=== PATIENT | female | born 1935 | race Caucasian/White ===

== ENCOUNTER → 2016-06-16 | Outpatient (CLI) | payer MEDICARE ==
[~2016-06-16] MED LIST: ABAT125S; ALEN70TA5 PO; ESCI10TA PO; FOLI-17 PO; TRIA1CAP3 PO
== END | disposition home or self-care (01) ==
LOC: CARD 12:49
PROVIDERS: ATTEND Specialist
DX: F09 Unspecified mental disorder due to known physiological condition (principal); R41.0 Disorientation, unspecified
CPT/HCPCS: 95819

== ENCOUNTER 2018-04-02 20:23 | Inpatient (IN) | payer MEDICARE ==
[~2018-04-02] VITALS: Ht 152.4 cm; Wt 53.3 kg
--- NOTE | 2018-04-02 20:35 | NUR ---
PRECEPTOR NOTE, LATE ENTRY FOR 2034: pt william, ems called by d/t sudden alteration in mental status. per ems, at 1915 this pm, pt's noticed pt became less responsive and began to drool. left sided mouth droop noted on arrival. pt is minimally verbal and a&o x0 at baseline d/t hx dementia and hydrocephalus. 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 all monitors in place. EDMD Slava at bedside for assessment. Code neuro called.
--- NOTE | 2018-04-02 20:36 | NUR ---
PT TO CT
--- NOTE | 2018-04-02 20:37 | NUR ---
CODE NEURO CALLED 2034
[2018-04-02] MEDS ORDERED: OMNIPAQUE 350 MG/ML, 100ML BOTTLE ONE (20:40)
--- NOTE | 2018-04-02 20:49 | NUR ---
CODE NEURO CALLED @ 234 NEURO PAGED @ 2035 LEVON CALLED BACK @ 2037
--- NOTE | 2018-04-02 21:00 | NUR ---
PT BACK FROM CT
[2018-04-02 21:14] LABS: BASOPHILS # (AUTO) 0.03 x10^3/uL (0-0.1); BASOPHILS % (AUTO) 0 % (0-1); EOSINOPHILS # (AUTO) 0.16 x10^3/uL (0-0.4); EOSINOPHILS % (AUTO) 1 % (1-7); LYMPHOCYTES % (AUTO) 7 % (22-44); MD NO; MEAN CORPUSCULAR HEMOGLOBIN 26.6 pg (27.0-34.8); MEAN CORPUSCULAR HGB CONC 32.2 g/dL (32.4-35.8); MEAN CORPUSCULAR VOLUME 82.6 fL (80-100); MEAN PLATELET VOLUME 7.3 fL (7.4-10.4); MONOCYTES # (AUTO) 0.67 x10^3/uL (0.2-0.8); MONOCYTES % (AUTO) 5 % (2-9); NEUTROPHILS # (AUTO) 10.65 x10^3/uL (1.8-6.8); NEUTROPHILS % (AUTO) 86 % (42-75); PLATELET COUNT 349 x10^3/uL (130-400); RED BLOOD COUNT 3.79 x10^6/uL (3.82-5.3); RED CELL DISTRIBUTION WIDTH 17.5 % (9.6-15.2)
--- NOTE | 2018-04-02 21:25 | NUR ---
PT IS A&O TO PERSON ONLY, ABLE TO ANSWER SOME QUESTIONS AND FOLLOW SOME COMMANDS. TELE NEURO CONSALT COMPLETE WITH RN ASSIST IN PT ASSESSMENT. AWAITIG NEUROLOGIST RECOMMENDATIONS AT THIS TIME. CALL LIGHT IN REACH.
[2018-04-02 21:26] LABS: INTERNATIONAL NORMALIZED RATIO 1.02 (0.93-1.1); PROTHROMBIN TIME 10.8 Seconds (9.6-11.5)
--- NOTE | 2018-04-02 22:15 | NUR ---
URINE STRAIGHT CATH OBTAINED, STERILE TECHNIQUE MAINTAINED. URINE WALKED TO LAB. AWAITING ADMIT BED ASSIGNMENT AND TRANSPORT.
[2018-04-02 22:27] LABS: CULTURE INDICATED? YES; MICROSCOPIC INDICATED
[2018-04-02] MEDS ORDERED: cefdinir (22:33)
[2018-04-02] MEDS ORDERED: DONEPEZIL HCL (22:33)
[2018-04-02] MEDS ORDERED: levothyroxine sodium (22:34)
[2018-04-02] MEDS ORDERED: MEMANTINE HCL (22:35)
--- NOTE | 2018-04-02 22:39 | NUR ---
REPORT CALLED TO ITA ELLIOTT. PT AWAITING TRANSPORT TO [facility].
[2018-04-02] MEDS ORDERED: ESCITALOPRAM PO (22:41)
--- NOTE | 2018-04-02 22:46 | NUR ---
pt's is named marco antonio, phone number [phone]
--- NOTE | 2018-04-02 22:54 | NUR ---
JEANNIE ALVARADO NOTIFIED THAT PT HAS UA RESULTS CONSISTENT WITH UTI AND WBC COUNT 12.4. AWAITING FURTHER ORDERS.
[2018-04-02] MEDS: ATORVASTATIN 40 MG TABLET PO SCH (23:00)
[2018-04-02] MEDS ORDERED: DOCUSATE 100 MG CAPSULE PO PRN (23:00)
[2018-04-02] MEDS ORDERED: BISACODYL 10 MG SUPP PR PRN (23:00)
[2018-04-02] MEDS ORDERED: ACETAMINOPHEN 325 MG TABLET PO PRN (23:00)
[2018-04-02] MEDS ORDERED: ONDANSETRON 4 MG TABLET PO PRN (23:00)
[2018-04-02] MEDS ORDERED: POLYETHYLENE GLYCOL 17 GM PACKET PO PRN (23:00)
--- NOTE | 2018-04-02 23:11 | NUR ---
pt transported to [facility]. both pt's hearing aids were taken out in CT and placed in CT bracelet pouch which is on pt's right wrist. receiving ITA Khalil notified. receiving RN aware pt is to have blood cx and abx for +uti. Addendum: 04/02/18 at 2313 by KEVIN pt transported to [facility]. both pt's hearing aids were taken out in CT and placed in CT bracelet pouch which is on pt's right wrist. pt transported to [facility] wearing bracelet-pouch containing bilateral hearing aids. receiving ITA Khalil notified. receiving RN aware pt is to have blood cx and abx for +uti.
[2018-04-02 23:35] VITALS: BP 163/85
[2018-04-03] VITALS (7 sets, daily range): BP systolic 127–163; BP diastolic 71–84
[2018-04-03] MEDS: SODIUM CHLORIDE 0.9% 1,000 ML IV SCH ×3 (00:24→21:04)
[2018-04-03] MEDS: CEFTRIAXONE PMX 1GM/50ML 50 ML IV SCH (00:59)
[2018-04-03 05:57] LABS: BASOPHILS # (AUTO) 0.03 x10^3/uL (0-0.1); BASOPHILS % (AUTO) 0 % (0-1); EOSINOPHILS # (AUTO) 0.15 x10^3/uL (0-0.4); EOSINOPHILS % (AUTO) 2 % (1-7); LYMPHOCYTES # (AUTO) 1.93 x10^3/uL (1-3.4); LYMPHOCYTES % (AUTO) 21 % (22-44); MD NO; MEAN CORPUSCULAR HEMOGLOBIN 27.1 pg (27.0-34.8); MEAN CORPUSCULAR HGB CONC 33.3 g/dL (32.4-35.8); MEAN CORPUSCULAR VOLUME 81.3 fL (80-100); MEAN PLATELET VOLUME 7.6 fL (7.4-10.4); MONOCYTES # (AUTO) 0.73 x10^3/uL (0.2-0.8); MONOCYTES % (AUTO) 8 % (2-9); NEUTROPHILS # (AUTO) 6.52 x10^3/uL (1.8-6.8); NEUTROPHILS % (AUTO) 70 % (42-75); PLATELET COUNT 318 x10^3/uL (130-400); RED CELL DISTRIBUTION WIDTH 17.6 % (9.6-15.2)
[2018-04-03 06:10] LABS: CHLORIDE 101 mmol/L (98-107)
[2018-04-03 06:38] LABS: ALANINE AMINOTRANSFERASE < 6 U/L (12-78); ALBUMIN 2.3 g/dL (3.4-5.0); ALKALINE PHOSPHATASE 78 U/L (45-117); ANION GAP 7 mmol/L (5-15); BILIRUBIN,TOTAL 0.3 mg/dL (0.2-1.0); CALCIUM 7.1 mg/dL (8.5-10.1); CHOL/HDL RATIO 3.2; CHOLESTEROL, TOTAL 136 mg/dL (140-239); CREATININE 1.68 mg/dL (0.55-1.02); HDL CHOL % 31 % (28-40); HDL CHOLESTEROL (DIRECT) 42 mg/dL (40-60); LDL CHOLESTEROL,CALCULATED 80 mg/dL (54-169); LDL/HDL RATIO 1.9 (0.5-3.0); TOTAL PROTEIN 6.6 g/dL (6.4-8.2); TRIGLYCERIDES 72 mg/dL (50-200); VLDL CHOLESTEROL 14 mg/dL (0-25)
[2018-04-03] MEDS: ASPIRIN 81 MG TABLET CHEW PO/NG SCH (08:53)
[2018-04-03] MEDS ORDERED: ASPIRIN 300 MG SUPP PR ONE (09:00)
--- NOTE | 2018-04-03 09:40 | NUR ---
Recommend: NPO, except for single ice chips with 1:1 assist when pt fully awake/alert Addendum: 04/03/18 at 1442 by Yuliana THORNTON Amended: Links added.
[2018-04-03] MEDS ORDERED: LEVO200V10 PO (14:56)
[2018-04-03] MEDS ORDERED: MEMANTINE HCL PO (14:56)
[2018-04-03] MEDS ORDERED: ESCITALOPRAM PO (14:56)
[2018-04-03] MEDS ORDERED: DONEPEZIL PO (14:56)
[2018-04-03] MEDS: ATORVASTATIN 40 MG TABLET PO SCH (20:40)
[2018-04-04] MEDS: CEFTRIAXONE PMX 1GM/50ML 50 ML IV SCH (00:40)
[2018-04-04 02:00] VITALS: BP 167/87
[2018-04-04] MEDS: SODIUM CHLORIDE 0.9% 1,000 ML IV SCH ×2 (06:14→17:24)
[2018-04-04 07:08] VITALS: BP 159/78
[2018-04-04] MEDS: ASPIRIN 81 MG TABLET CHEW PO/NG SCH (11:30)
[2018-04-04 12:16] VITALS: BP 141/72
--- NOTE | 2018-04-04 16:23 | NUR ---
RETREADER RECOMMEND: CHOPPED/THIN * Up 90 degrees * Assist as needed * Meds floated [place] sheet posted Addendum: 04/04/18 at [address] Amended: Links added.
[2018-04-04 19:59] VITALS: BP 180/92
[2018-04-04] MEDS ORDERED: DONEPEZIL 10 MG TABLET PO SCH (21:00)
[2018-04-04] MEDS: ATORVASTATIN 40 MG TABLET PO SCH (22:31)
[2018-04-05] MEDS: CEFTRIAXONE PMX 1GM/50ML 50 ML IV SCH (01:16)
[2018-04-05 02:55] VITALS: BP 165/82
[2018-04-05] MEDS: SODIUM CHLORIDE 0.9% 1,000 ML IV SCH (04:22)
[2018-04-05 05:52] LABS: BASOPHILS # (AUTO) 0.03 x10^3/uL (0-0.1); BASOPHILS % (AUTO) 0 % (0-1); EOSINOPHILS # (AUTO) 0.14 x10^3/uL (0-0.4); EOSINOPHILS % (AUTO) 2 % (1-7); LYMPHOCYTES # (AUTO) 1.14 x10^3/uL (1-3.4); LYMPHOCYTES % (AUTO) 15 % (22-44); MD NO; MEAN CORPUSCULAR HEMOGLOBIN 26.7 pg (27.0-34.8); MEAN CORPUSCULAR HGB CONC 32.5 g/dL (32.4-35.8); MEAN CORPUSCULAR VOLUME 82.1 fL (80-100); MEAN PLATELET VOLUME 7.6 fL (7.4-10.4); MONOCYTES # (AUTO) 0.44 x10^3/uL (0.2-0.8); MONOCYTES % (AUTO) 6 % (2-9); NEUTROPHILS % (AUTO) 78 % (42-75); PLATELET COUNT 323 x10^3/uL (130-400); RED BLOOD COUNT 3.84 x10^6/uL (3.82-5.3)
[2018-04-05 06:10] LABS: ANION GAP 10 mmol/L (5-15); CALCIUM 6.3 mg/dL (8.5-10.1); CHLORIDE 106 mmol/L (98-107)
[2018-04-05 06:12] LABS: CREATININE 1.52 mg/dL (0.55-1.02)
[2018-04-05 07:12] VITALS: BP 176/85
[2018-04-05] MEDS ORDERED: MEMANTINE 5MG TABLET PO SCH (09:00)
[2018-04-05] MEDS ORDERED: LEVOTHYROXINE 150 MCG TABLET PO SCH (09:00)
[2018-04-05] MEDS ORDERED: CITALOPRAM 20 MG TABLET PO SCH (09:00)
[2018-04-05] MEDS: ASPIRIN 81 MG TABLET CHEW PO/NG SCH (09:08)
[2018-04-05] MEDS ORDERED: AMLO10TA6 PO (12:44)
[2018-04-05] MEDS ORDERED: CEFD300C37 PO ×2 (12:44)
[2018-04-05] MEDS ORDERED: CIPR250T2 PO (16:14)
== END 2018-04-05 13:31 | disposition home health service (06) | DRG 64 ==
LOC: ED 22:46 → 4EST 22:49
PROVIDERS: ADMIT Hospitalist; ATTEND Hospitalist
PROC: 0T9B70Z Drainage of Bladder with Drainage Device, Via Natural or Artificial Opening (ICD-10-PCS; principal; 2018-04-02)
DX: I63.9 Cerebral infarction, unspecified (principal); G93.41 Metabolic encephalopathy; N17.0 Acute kidney failure with tubular necrosis; N39.0 Urinary tract infection, site not specified; E87.1 Hypo-osmolality and hyponatremia; G91.9 Hydrocephalus, unspecified; R29.810 Facial weakness; B96.5 Pseudomonas (aeruginosa) (mallei) (pseudomallei) as the cause of diseases classified elsewhere; D50.9 Iron deficiency anemia, unspecified; E03.9 Hypothyroidism, unspecified; E21.0 Primary hyperparathyroidism; E86.0 Dehydration; F03.90 Unspecified dementia, unspecified severity, without behavioral disturbance, psychotic disturbance, mood disturbance, and anxiety; K21.9 Gastro-esophageal reflux disease without esophagitis; M06.9 Rheumatoid arthritis, unspecified; I08.3 Combined rheumatic disorders of mitral, aortic and tricuspid valves; N18.9 Chronic kidney disease, unspecified; I12.9 Hypertensive chronic kidney disease with stage 1 through stage 4 chronic kidney disease, or unspecified chronic kidney disease; Z88.8 Allergy status to other drugs, medicaments and biological substances
CPT/HCPCS: 36415; 70450; 70496; 70498; 71045; 80047; 80048; 80053; 80061; 81001; 82728; 83540; 83550; 84443; 85025; 85610; 85730; 87040; 87077; 87086; 87186; 93005; 93306; 99285; G0378; J0696; Q9967; J7030

== ENCOUNTER 2018-04-05 13:45 | Emergency (ER) | payer MEDICARE ==
[~2018-04-05] VITALS: Ht 152.4 cm; Wt 52.0 kg
[~2018-04-05 13:45] MED LIST changes: -ALEN70TA5 PO; +ALEN70TA6 PO; +AMLO10TA8 PO; +CEFD300C37 PO; +DONEPEZIL HCL; +DONEPEZIL PO; +ESCITALOPRAM PO; +LEVO200V10 PO; +MEMANTINE HCL; +MEMANTINE HCL PO; +cefdinir; +levothyroxine sodium
--- NOTE | 2018-04-05 14:51 | NUR ---
Bedside SBAR report received from RNJoslyn. Pt resting on gurney, denies any complaint to RN, states that she feels ready to go home. Caregiver at bedside and will drive pt home.
--- NOTE | 2018-04-05 15:15 | NUR ---
Pillow placed under pt's leg for comfort, pt VSS, still with no complaint for RN. [employer] at bedside.
--- NOTE | 2018-04-05 15:41 | NUR ---
[employer] SM[employer] HELPERBillie, at bedside to reevaluate pt and discuss POC with caregiver.
[2018-04-05 15:56] VITALS: BP 172/89
--- NOTE | 2018-04-05 15:57 | NUR ---
Patient/Caregiver given discharge instructions and they have confirmed that they understand the instructions. Patient wheeled to d/c area with this RN, and assisted into vehicle with caregiver and [facility] ED staff.
[2018-04-05] MEDS ORDERED: CIPR250T2 PO (16:14)
== END 2018-04-05 15:58 | disposition home or self-care (01) ==
LOC: ED 14:44
DX: S09.90XA Unspecified injury of head, initial encounter (principal); E03.9 Hypothyroidism, unspecified; F03.90 Unspecified dementia, unspecified severity, without behavioral disturbance, psychotic disturbance, mood disturbance, and anxiety; W20.8XXA Other cause of strike by thrown, projected or falling object, initial encounter; Y93.89 Activity, other specified; Y92.89 Other specified places as the place of occurrence of the external cause; Y99.8 Other external cause status
CPT/HCPCS: 99283